=== PATIENT | male | born 1960 | race Caucasian/White ===

== ENCOUNTER → 2021-11-15 | Outpatient (CLI) | payer SELFPAY ==
--- NOTE | 2021-11-15 13:51 | ECHOD_ITS ---
Reason For Study: MURMUR Procedure This was a 2D Doppler, Color Flow transthoracic echocardiogram. Exam performed in department. Left Ventricle Normal LV size. The estimated ejection fraction is 60 %. No evidence for diastolic dysfunction. No regional wall motion abnormalities noted. Right Ventricle Normal RV size. Normal systolic function. Atria Normal left atrium. Normal right atrium. No doppler evidence for ASD. Mitral Valve There is no mitral valve stenosis. No mitral valve insufficiency. Tricuspid Valve There is no tricuspid stenosis. Trivial tricuspid valve insufficiency. Unable to estimate RV systolic pressure due to insufficient tricuspid regurgitant envelope. Aortic Valve Trisinus/trileaflet aortic valve. There is no aortic stenosis. No aortic valve insufficiency. Pulmonic Valve There is no pulmonic valvular stenosis. No pulmonic valve insufficiency. Great Vessels Normal aortic root. Pericardium/Pleural No pericardial effusion. MMode/2D Measurements & Calculations LVIDd: 5.2 cm IVSd: 1.1 cm Ao root diam: 3.5 cm LVIDs: 2.3 cm LVPWd: 1.1 cm RVDd: 2.9 cm FS: 55.3 % LAV(MOD-bp): 46.2 ml LVAd ap4: 23.5 cm2 LVAd ap2: 26.7 cm2 LAV(MOD-bp) Indexed: 22.1 ml/m2 LVLd ap4: 7.8 cm LVLd ap2: 7.6 cm LAV(MOD-sp2): 44.3 ml EDV(MOD-sp4): 61.1 ml EDV(MOD-sp2): 79.4 ml LAV(MOD-sp4): 47.6 ml EDV(sp4-el): 60.2 ml EDV(sp2-el): 79.4 ml LVAs ap4: 11.1 cm2 LVAs ap2: 11.9 cm2 LVLs ap4: 5.8 cm LVLs ap2: 5.4 cm ESV(MOD-sp4): 19.1 ml ESV(MOD-sp2): 23.4 ml ESV(sp4-el): 18.0 ml ESV(sp2-el): 22.1 ml EF(MOD-sp4): 68.7 % EF(MOD-sp2): 70.6 % EF(sp4-el): 70.1 % SV(MOD-sp4): 42.0 ml SV(MOD-sp2): 56.0 ml SV(sp4-el): 42.2 ml LA dimension(2D): 4.3 cm LA A4 area: 17.4 cm2 RA A4 area: 11.8 cm2 Time Measurements MV dec time: 0.21 sec Doppler Measurements & Calculations MV E max steven: 78.1 cm/sec Lat Peak E' Steven: 8.2 cm/sec Med Peak E' Steven: 8.4 cm/sec MV A max steven: 88.9 cm/sec E/E' lat: 9.5 E/E' med: 9.3 MV E/A: 0.88 MV dec slope: 459.7 cm/sec2 Ao V2 max: 154.8 cm/sec LV V1 max: 133.7 cm/sec Ao max P.6 mmHg LV V1 max P.2 mmHg Ao V2 mean: 104.7 cm/sec LV V1 mean P.8 mmHg Ao mean P.0 mmHg LV V1 mean: 91.9 cm/sec Ao V2 VTI: 30.9 cm LV V1 VTI: 24.8 cm PA V2 max: 113.7 cm/sec TR max steven: 297.5 cm/sec TR max P.4 mmHg ECHO/Echo Complete Interpretation Summary The estimated ejection fraction is 60 %. No evidence for diastolic dysfunction. Ordering Physician: Ezequiel Zamora Referring Physician: Ezequiel Zamora Performed By: Yajaira Ureña, JANELLE, RVT
== END | disposition home or self-care (01) ==
PROVIDERS: PCP Family Medicine; Referring Provider Family Medicine; Visit Provider Family Medicine
DX: R01.1 Cardiac murmur, unspecified (principal); R42 Dizziness and giddiness
CPT/HCPCS: 93306